=== PATIENT | female | born 1960 | race Caucasian/White ===

== ENCOUNTER → 2017-11-20 | Day surgery (SDC) | payer BC ==
[~2017-11-20] MED LIST: ACTOPLUS MET 11 EAC1 PO; ALEVE220 MG PO; BIOFREEZE; BUPIVACAINE HCL 0.5% 10ML MPF VIAL INJ ONE; CEFAZOLIN SOD 2 GM/D5W 50ML 50 ML IV ONE; DEXAMETHASONE SOD PHOS INJ 4 MG/ML VIAL ONE; FARXIGA PO; FENTANYL CITRATE/PF 100MCG/2 ML INJ ONE; FLUTICASONE; KETOROLAC TROMETHAMINE 30 MG/ML VIAL ONE; LIDOCAINE HCL 2% LOCAL INJ 5 ML SDV VIAL INJ ONE; LORATADINE10 MG PO; LOSARTAN POTASS25 MG PO; MELATONIN3 MG PO; MELOXICAM7.5 MG PO; MIDAZOLAM HCL 2 MG/2 ML VIAL ONE; NEXIUM20 MG PO; ONDANSETRON HCL INJ 2 MG/ML VIAL ONE; PROPOFOL IV EMULSION 10 MG/ML 20 ML VIAL ONE; SEVOFLURANE INHAL SOLN 250 ML PEN BTL ONE; VITAMIN D32000 UNIT PO; [UNRECOGNIZED DRUG - CODE] PO
--- NOTE | 2017-11-20 19:16 | Operative Report ---
DATE OF PROCEDURE: November 20, 2017 PREOPERATIVE DIAGNOSIS: Left wrist cyst, de Quervain and tenosynovitis. POSTOPERATIVE DIAGNOSIS: Left wrist cyst, de Quervain and tenosynovitis. PROCEDURES PERFORMED: 1. Removal of a left wrist cyst. 2. Release of the first dorsal wrist compartment. RADIO OPERATOR GROUND: NONE. ANESTHESIA: General endotracheal intubation anesthesia. IV FLUIDS: Per the anesthesia record. BRIEF DESCRIPTION OF THE PATIENT'S OPERATIVE PROCEDURE: Ms. Salgado was taken to the operating room and placed in supine position on operating table. Following induction of general anesthesia as well as intubation, the patient's left upper extremity was examined under anesthesia. She was found to have a normal appearing elbow and hand. The patient had a nodular growth along the dorsal and radial border of her wrist overlying the 1st dorsal wrist compartment. The patient's upper extremity was prepped and draped in standard surgical fashion. An incision was created along the 1st dorsal wrist compartment region of the distal forearm. This incision was carried only through the superficial dermal tissues. Blunt dissection was then used to deepen the incision into the subdermal space and careful blunt dissection was used to deepen the incision to the level of the 1st dorsal wrist compartment. A nodular cyst was found overlying the 1st dorsal wrist compartment. The proximal edge of the first dorsal wrist compartment was identified and a knife was used to open the 1st dorsal wrist compartment. The cyst was excised in toto and was found to be an encapsulated ganglion cyst. This was passed to the back table and sent to pathology for reevaluation. An accessory first dorsal wrist compartment was also identified and the tendon was also used. Once this was achieved, motion of the thumb was found to have unrestricted motion. There were no abnormalities within the canal of the 1st dorsal wrist compartment or with the tendons. The wound was copiously irrigated. The wound was closed in a multilayer fashion. Sterile dressings were applied as well as a well-padded thumb spica splint. The patient was then awakened and taken to post anesthesia care unit in stable condition. Job#: [id number]
== END | disposition home or self-care (01) ==
LOC: OR 09:05
PROVIDERS: ATTEND Specialist
DX: M67.432 Ganglion, left wrist (principal); M65.4 Radial styloid tenosynovitis [de Quervain]; M19.042 Primary osteoarthritis, left hand; M18.12 Unilateral primary osteoarthritis of first carpometacarpal joint, left hand; E11.9 Type 2 diabetes mellitus without complications; I10 Essential (primary) hypertension; Z01.810 Encounter for preprocedural cardiovascular examination; Z68.39 Body mass index [BMI] 39.0-39.9, adult
CPT/HCPCS: 25000; 25111; 36415; 82948; 88304; 93005; J1100; J1885; J2001; J2250; J2405